=== PATIENT | male | born 1990 | race African-American/Black ===

== ENCOUNTER 2017-02-08 20:36 | Emergency (ER) | payer OTHER ==
--- NOTE | 2017-02-08 21:26 | ED ORDER SUMMARY ---
..... Patient: LUKAS HAMILTON OrderSheet [facility] VisitID: [id number] [place] [address] 26y, M Registration Date/Time: 02/08/2017 ORDER SHEET Weight: 90.7 kg (measured) Allergies: No Known Drug Allergy GENERAL ORDERS: MEDICATION ORDERS: Toradol IM 60 mg (NOW) (21:20 02/08/2017 Glenis A.R.N.P.) (Ack 21:21 Jeni Brown.N.) (21:25 Jeni Brown.NErin) IV FLUIDS: ORDER SHEET NOTES: [Electronically signed by Shankar Vo R.N. (22:06 02/08/2017)] [Electronically signed by Tiffany LewisR.N.PErin (22:49 02/08/2017)] [Electronically locked/signed by Shankar Vo R.N. (22:06 02/08/2017)]
--- NOTE | 2017-02-08 21:26 | ED ORDER SUMMARY ---
..... Patient: LUKAS HAMILTON OrderSheet [facility] VisitID: [id number] [place] [address] 26y, M Registration Date/Time: 02/08/2017 ORDER SHEET Weight: 90.7 kg (measured) Allergies: No Known Drug Allergy GENERAL ORDERS: MEDICATION ORDERS: Toradol IM 60 mg (NOW) (21:20 02/08/2017 Glenis A.R.N.P.) (Ack 21:21 Jeni Brown.N.) (21:25 Jeni Brown.NErin) IV FLUIDS: ORDER SHEET NOTES: [Electronically signed by Shankar Vo R.N. (22:06 02/08/2017)] [Electronically signed by Tiffany LewisR.N.PErin (22:49 02/08/2017)] [Electronically locked/signed by Shankar Vo R.N. (22:06 02/08/2017)]
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
--- NOTE | 2017-02-08 22:50 | ED MAR SUMMARY ---
..... Medication Administration Record [facility] [address] [place] [address] Patient: LUKAS HAMILTON Visit ID: [id number] 26y, M Weight: 90.7 kg Height/Length: 72 in BMI: 27.1 ALLERGIES: No Known Drug Allergy Given 21:25 02/08/2017 Shankar Vo RBradley Medication Administered: TORADOL [IM] (KETOROLAC TROMETHAMINE), Dose: 60 mg IM. Medication Ordered: Toradol IM 60 mg (NOW).
--- NOTE | 2017-02-08 22:50 | ED MED RECONCILIATION SUMMARY ---
Patient: LUKAS HAMILTON Medication Reconciliation Report [facility] VisitID: [id number] [address] [place] [address] 26y, M Registration Date/Time: 02/08/2017 Weight: 90.7 kg Height/Length: 72 in. BMI: 27.1 ALLERGIES: No Known Drug Allergy The patient's Home Medications are listed below: THE FOLLOWING MEDICATIONS NEED TO BE RECONCILED: Tylenol Oral The source(s) of the original Home Medication information: patient The following Medications were given to the patient in the Emergency Department: Toradol [IM] IM 60 mg, administered: 02/08/2017 9:25:00 PM The following Medications were prescribed to the patient: Flexeril 10 mg: Take 1 orally every 8 hours as needed for muscle spasm. Dispense twenty (20). No refills. Substitution is permissible. -- Tiffany Lewis, Arleen.R.N.P. Ultram 50 mg tablets: take 1-2 orally every 6 hours as needed for pain. Dispense twenty (20). No refills. Substitution is permissible. -- Tiffany Lewis, Arleen.R.N.P.
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
--- NOTE | 2017-02-08 22:50 | ED MAR SUMMARY ---
..... Medication Administration Record [facility] [address] [place] [address] Patient: LUKAS HAMILTON Visit ID: [id number] 26y, M Weight: 90.7 kg Height/Length: 72 in BMI: 27.1 ALLERGIES: No Known Drug Allergy Given 21:25 02/08/2017 Shankar Vo RBradley Medication Administered: TORADOL [IM] (KETOROLAC TROMETHAMINE), Dose: 60 mg IM. Medication Ordered: Toradol IM 60 mg (NOW).
--- NOTE | 2017-02-08 22:50 | ED MED RECONCILIATION SUMMARY ---
Patient: LUKAS HAMILTON Medication Reconciliation Report [facility] VisitID: [id number] [address] [place] [address] 26y, M Registration Date/Time: 02/08/2017 Weight: 90.7 kg Height/Length: 72 in. BMI: 27.1 ALLERGIES: No Known Drug Allergy The patient's Home Medications are listed below: THE FOLLOWING MEDICATIONS NEED TO BE RECONCILED: Tylenol Oral The source(s) of the original Home Medication information: patient The following Medications were given to the patient in the Emergency Department: Toradol [IM] IM 60 mg, administered: 02/08/2017 9:25:00 PM The following Medications were prescribed to the patient: Flexeril 10 mg: Take 1 orally every 8 hours as needed for muscle spasm. Dispense twenty (20). No refills. Substitution is permissible. -- Tiffany Lewis, Arleen.R.N.P. Ultram 50 mg tablets: take 1-2 orally every 6 hours as needed for pain. Dispense twenty (20). No refills. Substitution is permissible. -- Tiffany Lewis, Arleen.R.N.P.
== END 2017-02-08 22:06 | disposition home or self-care (01) ==
LOC: ED SRH 20:36
DX: M79.1 Myalgia (principal); V53.5XXA Driver of pick-up truck or van injured in collision with car, pick-up truck or van in traffic accident, initial encounter; Y93.89 Activity, other specified; Y92.410 Unspecified street and highway as the place of occurrence of the external cause; Y99.8 Other external cause status; F17.210 Nicotine dependence, cigarettes, uncomplicated